=== PATIENT | male | born 1965 | race Caucasian/White ===

== ENCOUNTER 2017-05-02 11:29 | Emergency (ER) | payer BC, OTHER ==
[~2017-05-02] VITALS: Ht 172.7 cm; Wt 108.9 kg
[~2017-05-02 11:29] MED LIST: CELE200C PO; HYDR-4100 PO; MODA200T30 PO; SOM350 PO; TERI14TA PO
[2017-05-02 11:30] VITALS: BP_SYST 126
--- NOTE | 2017-05-02 11:32 | NUR ---
Patient triaged and placed in waiting room. VSS and patient appears in no acute distress at this time. Accompanied by FAMILY, awaiting available bed, and MD notified of need for MSE.
[2017-05-02 12:28] LABS: BASOPHILS # (AUTO) 0.1 K/uL (0.0-0.2); BASOPHILS % (AUTO) 0.8 % (0.0-2.0); EOSINOPHILS # (AUTO) 0.2 K/uL (0.0-0.4); EOSINOPHILS % (AUTO) 2.8 % (0.0-4.0); HEMATOCRIT 45.5 % (36-54); LYMPHOCYTES # (AUTO) 0.5 K/uL (1.0-5.5); LYMPHOCYTES % (AUTO) 5.5 % (20.5-51.5); MEAN CORPUSCULAR HEMOGLOBIN 29 pg (27-31); MEAN CORPUSCULAR HGB CONC 33 % (32-36); MEAN CORPUSCULAR VOLUME 87 fL (79.0-98.0); MONOCYTES # (AUTO) 0.8 K/uL (0.0-1.0); MONOCYTES % (AUTO) 8.8 % (1.7-9.3); NEUTROPHILS % (AUTO) 82.1 % (40.0-70.0); PLATELET COUNT (AUTO) 264 K/uL (130-430); RED BLOOD CELL COUNT(AUTO) 5.23 MIL/uL (4.2-6.2); RED CELL DISTRIBUTION WIDTH 11.7 % (9.0-15.0); WHITE BLOOD COUNT (AUTO) 8.6 K/uL (4.8-10.8)
--- NOTE | 2017-05-02 12:33 | NUR ---
Ambulatory to bed 4
[2017-05-02 12:39] LABS: ANION GAP 6 (5-15); CALCIUM 10.2 mg/dL (8.4-11.0); CHLORIDE 100 mmol/L (98-107); CREATININE 1.03 mg/dL (0.55-1.30); GLUCOSE 134 mg/dL (70-99); POTASSIUM 4.3 mmol/L (3.5-5.1); SODIUM SERUM 137 mmol/L (136-145); UREA NITROGEN, BLOOD 16 mg/dL (8-21)
[2017-05-02 12:40] LABS: GFR AFRICAN AMERICAN 98 mL/min (>90)
[2017-05-02 12:47] LABS: ALANINE AMINOTRANSFERASE 48 U/L (12-78); ALBUMIN 4.1 g/dL (3.4-4.8); AMYLASE 94 U/L (0-100); ASPARTATE AMINOTRANSFERASE 25 U/L (10-37); LIPASE 119 U/L (73-393); TOTAL BILIRUBIN 0.6 mg/dL (0.0-1.0)
--- NOTE | 2017-05-02 13:03 | NUR ---
Pt presents to ER c/o dizziness, headache pain 10/12, minor SOB, nauseousness, vomiting x 2 today. Pt states that these symptoms have lasted past few days but worsened within last 24 hrs. Pt also states that he has been in a tremendous amount of stress lately. Pt denies chest pain or loss of consciousness. Pt reports history of multiple sclerosis, which he states is controlled. Pt is AOX4, no acute distress noted, NKDA, family at bedside.
--- NOTE | 2017-05-02 13:03 | NUR ---
ER at bedside examining patient.
--- NOTE | 2017-05-02 13:20 | NUR ---
# 22 gauge angiocath placed to LAC. Use of asceptic technique. Opsite placed over site. Blood for lab drawn from site. Flushed with 10 cc of normal saline. No evidence of infiltration noted. Patient tolerated well.
[2017-05-02] MEDS: ONDANSETRON HCL 4 MG/2 ML VIAL IVP ONE ×2 (13:24→16:17)
--- NOTE | 2017-05-02 13:30 | NUR ---
Pt medicated for pain 6/10 headache and medicated for nausea. Pt also started on IVF. Pt tolerating well; will continue to monitor.
[2017-05-02] MEDS: KETOROLAC TROMETHAMINE 30 MG VIAL IVP ONE (13:33)
[2017-05-02] MEDS: NACL 0.9% 1,000 ML IV ONE (13:33)
--- NOTE | 2017-05-02 14:05 | NUR ---
Pt pain level reassessed; pt states pain decreased to 3/10 which he states is a tolerable level of pain. Pt resting comfortably on gurney. No distress noted.
[2017-05-02 14:25] LABS: ERYTHROCYTE SEDIMENTATION RATE 7 MM/HR (0-15)
--- NOTE | 2017-05-02 16:06 | NUR ---
Dr. Cardona at bedside updating pt on lab and diagnostic results.
[2017-05-02 16:28] VITALS: BP_SYST 130
--- NOTE | 2017-05-02 16:29 | NUR ---
Patient given written and verbal discharge instructions and verbalizes understanding. ER MD discussed with patient the results and treatment provided. Patient in stable condition. ID arm band removed. IV catheter removed intact and dressing applied, no active bleeding. Rx of Zofran given. Patient educated on pain management and to follow up with PMD. Pain Scale 0/10. Opportunity for questions provided and answered.
== END 2017-05-02 16:28 | disposition home or self-care (01) ==
LOC: SED 11:29
DX: A08.4 Viral intestinal infection, unspecified (principal); Z79.899 Other long term (current) drug therapy
CPT/HCPCS: 36415; 80053; 82150; 83690; 84484; 85025; 85651; 86140; 86710; 93005; 96365; 96375; 96376; 99285; J1885; J2405; J7030

== ENCOUNTER 2017-06-02 04:40 | Emergency (ER) | payer BC ==
[~2017-06-02] VITALS: Ht 172.7 cm; Wt 102.1 kg
[2017-06-02 04:40] VITALS: BP_SYST 118
--- NOTE | 2017-06-02 04:40 | NUR ---
Patient to ER bed 7 to gown for evaluation. Side rails up.
--- NOTE | 2017-06-02 04:45 | NUR ---
PT IN BED 7 WITH C/O SORE THROAT X [address] .DR SARKAR AWARE.
--- NOTE | 2017-06-02 05:00 | NUR ---
ER at bedside examining patient.
[2017-06-02] MEDS: KETOROLAC TROMETHAMINE 60 MG/2 ML VIAL IM ONE (05:18)
--- NOTE | 2017-06-02 05:40 | NUR ---
Patient given written and verbal discharge instructions and verbalizes understanding. ER MD discussed with patient the results and treatment provided. Patient in stable condition. ID arm band removed. Rx of AMOXICILLIN, PROMETHAZINE COUGH SYRUP given. Patient educated on pain management and to follow up with PMD. Pain Scale 0/10. Opportunity for questions provided and answered.
[2017-06-02 05:41] VITALS: BP_SYST 119
== END 2017-06-02 05:41 | disposition home or self-care (01) ==
LOC: SED 04:40
DX: J03.90 Acute tonsillitis, unspecified (principal); Z79.899 Other long term (current) drug therapy
CPT/HCPCS: 36415; 86403; 87081; 96372; 99284; J1885

== ENCOUNTER 2018-01-10 06:11 | Emergency (ER) | payer BC ==
[~2018-01-10] VITALS: Ht 172.7 cm; Wt 99.8 kg
[~2018-01-10 06:11] MED LIST changes: +MODA200T22 PO; -MODA200T30 PO
[2018-01-10 06:23] VITALS: BP_SYST 140
[2018-01-10 06:52] VITALS: BP_SYST 140
== END 2018-01-10 06:52 | disposition home or self-care (01) ==
LOC: SED 06:11
DX: J40 Bronchitis, not specified as acute or chronic (principal); Z79.899 Other long term (current) drug therapy
CPT/HCPCS: 71045; 99283; J7050

== ENCOUNTER 2018-01-17 00:51 | Inpatient (IN) | payer BC ==
[~2018-01-17] VITALS: Ht 172.7 cm; Wt 112.5 kg
[2018-01-17] VITALS (7 sets, daily range): BP systolic 119–142
[2018-01-17 02:03] LABS: BASOPHILS # (AUTO) 0.1 K/uL (0.0-0.2); BASOPHILS % (AUTO) 1.1 % (0.0-2.0); EOSINOPHILS # (AUTO) 0.7 K/uL (0.0-0.4); EOSINOPHILS % (AUTO) 7.6 % (0.0-4.0); HEMATOCRIT 42.7 % (36-54); HEMOGLOBIN 14.6 g/dL (14.0-18.0); LYMPHOCYTES # (AUTO) 1.5 K/uL (1.0-5.5); LYMPHOCYTES % (AUTO) 17.4 % (20.5-51.5); MEAN CORPUSCULAR HEMOGLOBIN 30 pg (27-31); MEAN CORPUSCULAR HGB CONC 34 % (32-36); MEAN CORPUSCULAR VOLUME 88 fL (79.0-98.0); MONOCYTES # (AUTO) 1.2 K/uL (0.0-1.0); MONOCYTES % (AUTO) 13.9 % (1.7-9.3); NEUTROPHILS # (AUTO) 5.4 K/uL (1.8-7.7); PLATELET COUNT (AUTO) 217 K/uL (130-430); RED BLOOD CELL COUNT(AUTO) 4.85 MIL/uL (4.2-6.2); RED CELL DISTRIBUTION WIDTH 11.4 % (9.0-15.0); WHITE BLOOD COUNT (AUTO) 8.9 K/uL (4.8-10.8)
[2018-01-17 02:05] LABS: ANION GAP 7 (5-15); CHLORIDE 104 mmol/L (98-107); CREATININE 1.12 mg/dL (0.55-1.30); GLUCOSE 127 mg/dL (70-99); POTASSIUM 3.9 mmol/L (3.5-5.1); SODIUM SERUM 139 mmol/L (136-145); UREA NITROGEN, BLOOD 14 mg/dL (8-21)
[2018-01-17 02:08] LABS: GFR AFRICAN AMERICAN 89 mL/min (>90)
[2018-01-17 02:16] LABS: PROTHROMBIN TIME 10.3 SECS (9.5-12.5)
[2018-01-17 02:19] LABS: ALANINE AMINOTRANSFERASE 52 U/L (12-78); ALBUMIN 3.7 g/dL (3.4-4.8); ASPARTATE AMINOTRANSFERASE 59 U/L (10-37); TOTAL BILIRUBIN 0.4 mg/dL (0.0-1.0)
[2018-01-17 02:21] LABS: ALCOHOL, BLOOD < 3 mg/dL (<10)
[2018-01-17 02:39] LABS: BILIRUBIN,URINE NEGATIVE (NEGATIVE); BLOOD, URINE NEGATIVE (NEGATIVE); CLARITY/URINE CLEAR (CLEAR); COLOR,URINE YELLOW (YELLOW); GLUCOSE,URINE NEGATIVE (NEGATIVE); KETONES,URINE NEGATIVE (NEGATIVE); LEUKOCYTE ESTERASE ,URINE NEGATIVE (NEGATIVE); NITRITE, URINE NEGATIVE (NEGATIVE); PROTEIN URINE NEGATIVE (NEGATIVE); UROBILINOGEN,URINE 0.2 (0.2-1.0)
[2018-01-17 02:42] LABS: CKMB RELATIVE INDEX 0.2 (0.0-2.9); CREATINE KINASE MB 4.1 ng/mL (0-3.6)
[2018-01-17] MEDS ORDERED: NACL 0.9% 2,000 ML IV ONE (02:45)
[2018-01-17 02:54] LABS: BARBITURATE, URINE NEGATIVE (NEG <=200); BENZODIAZEPINE, URINE POSITIVE (NEG <=150); OPIATE, URINE POSITIVE (NEG <=100); URINE AMPHETAMINE NEGATIVE (NEG <=500); URINE METHADONE POSITIVE (NEG <=200)
[2018-01-17 02:55] LABS: CANNABINOID, URINE NEGATIVE (NEG <=50); COCAINE, URINE NEGATIVE (NEG <=150); METHAMPHETAMINES SCREEN,URINE NEGATIVE (NEG <=500); PHENCYCLIDINE SCREEN,URINE NEGATIVE (NEG <=25); UR TRICYCLIC ANTIDEPRESSANTS NEGATIVE (NEG <=300); URINE OXYCODONE SCREEN NEGATIVE (NEG <=100); URINE PROPOXYPHENE SCREEN NEGATIVE (NEG <=300)
[2018-01-17] MEDS ORDERED: [UNRECOGNIZED DRUG - OTHER] PO (03:00)
[2018-01-17] MEDS ORDERED: MORPHINE 4 MG/ML INJ. SYRINGE IVP ONE (03:30)
[2018-01-17] MEDS ORDERED: ONDANSETRON HCL 4 MG/2 ML VIAL IVP ONE (03:30)
[2018-01-17] MEDS ORDERED: methylPREDNISolone SOD SUCC/PF 62.5 MG/ML VIAL IVP ONE (03:30)
[2018-01-17] MEDS ORDERED: NACL 0.9% 1,000 ML IV ONE (04:00)
[2018-01-17 05:15] LABS: CKMB RELATIVE INDEX 0.2 (0.0-2.9)
[2018-01-17] MEDS: NACL 0.9% 1,000 ML IV SCH ×2 (06:36→14:41)
[2018-01-17] MEDS ORDERED: ALPR0.5T PO (07:03)
[2018-01-17] MEDS: methylPREDNISolone SOD SUCC/PF 62.5 MG/ML VIAL IVP SCH ×2 (08:27→14:42)
[2018-01-17] MEDS ORDERED: TERIFLUNOMIDE 14 MG PO SCH (09:00)
[2018-01-17] MEDS ORDERED: MODAFINIL 100 MG TABLET (PROVIGIL) PO SCH (09:00)
[2018-01-17] MEDS: CARISOPRODOL 350 MG TABLET PO SCH ×2 (09:16→14:42)
[2018-01-17] MEDS: HYDROcodone/ACETAMIN 10-325 MG TAB PO PRN ×2 (09:17→15:44)
== END 2018-01-17 20:15 | disposition home or self-care (01) | DRG 558 ==
LOC: SED 00:51 → SMU 05:47
PROVIDERS: ADMIT Family Medicine; ATTEND Family Medicine
DX: M62.82 Rhabdomyolysis (principal); G35 Multiple sclerosis; G89.29 Other chronic pain; M54.5 Low back pain; Z79.899 Other long term (current) drug therapy
CPT/HCPCS: 36415; 70450-TC; 71045; 80053; 80307; 81003; 82550-TC; 82553-TC; 84484; 85025; 85610-TC; 85730-TC; 93005; 96361; 96374; 96375; 99285; G0482; J2270; J2405; J2930; J7030